=== PATIENT | male | born 1970 | race Caucasian/White ===

== ENCOUNTER 2018-12-16 12:11 | Emergency (ER) | payer OTHER ==
[2018-12-16 12:28] VITALS: BP 158/78; PULSE 84; RESP 17; TEMP 98; O2SAT 97
--- NOTE | 2018-12-16 12:49 | ED PDOC ---
HPI: General Adult Time Seen by Provider: 12/16/18 12:32 Chief Complaint (Nursing): ENT Problem Chief Complaint (Provider): Abnormal Skin Integrity History Per: Patient History/Exam Limitations: no limitations Onset/Duration Of Symptoms: Days (1x week) Current Symptoms Are (Timing): Still Present Severity: Moderate Additional Complaint(s): 47 year old male with no pertinent past medical history presents to the ED for an evaluation of a pruritic rash of both hands that has been ongoing for the past 1x week. Patient reports using hydrocortisone cream with no relief. Patient reports that she washes his hands a lot throughout the day. Patient further reports that he has been experiencing left ear pain for the past 3-4x days. Patient denies having hearing changes, fevers, headaches, cough, congestion, ringing of the ears, recent swimming, or a history of diabetes. PMD: None provided. Past Medical History Reviewed: Historical Data, Nursing Documentation, Vital Signs Vital Signs: Last Vital Signs Temp 98.0 F 12/16/18 12:27 Pulse 84 12/16/18 12:27 Resp 17 12/16/18 12:27 BP 158/78 H 12/16/18 12:27 Pulse Ox 97 12/16/18 12:27 GAVIN Report Viewed: Yes - Medical History PMH: Bronchitis Denies: Asthma, Diabetes, HTN - Surgical History Surgical History: Hernia Repair - Family History Family History: States: Hypertension - Social History Current smoker - smoking cessation education provided: No Alcohol: Occasional Drugs: Denies - Immunization History Hx Tetanus Toxoid Vaccination: No Hx Influenza Vaccination: Yes Hx Pneumococcal Vaccination: No - Home Medications Home Medications: Ambulatory Orders Medication Instructions Recorded Ketoconazole 2% Cr [Nizoral] 1 appl TP BID #1 tube 11/24/18 Tolnaftate [Antifungal Cream] 14.18 gm TP BID 11/24/18 Miconazole 2% [Miconazole 2% Cream] 1 appl EXT BID #1 tube 11/27/18 Mupirocin 2% Cream [Bactroban 1 applic TOP BID #1 tube 11/27/18 Cream] Amoxicillin 875 mg PO BID #20 tablet 12/16/18 Neomycin/Polymyxin/Hydrocortis 4 drop TID #1 bottle 12/16/18 [Cortisporin Otic Susp] Triamcinolone Acetonide [Kenalog 1 applic TP BID PRN #1 tube 12/16/18 0.5% cream] - Allergies Allergies/Adverse Reactions: Allergies Allergy/AdvReac Type Severity Reaction Status Date / Time No Known Allergies Allergy Verified 11/27/18 10:07 Review of Systems ROS Statement: Except As Marked, All Systems Reviewed And Found Negative Constitutional: Negative for: Fever ENT: Positive for: Ear Pain (left ear pain). Negative for: Nose Congestion, Other (ear ringing, hearing changes.) Respiratory: Negative for: Cough Skin: Positive for: Rash (pruritic rash to both hands) Neurological: Negative for: Headache Physical Exam - Reviewed Nursing Documentation Reviewed: Yes Vital Signs Reviewed: Yes - Physical Exam Appears: Positive for: Well, Non-toxic, No Acute Distress Head Exam: Positive for: ATRAUMATIC, NORMOCEPHALIC Skin: Positive for: Warm, Dry, Rash (bilateral thenar area of the palms: scattered vesicles intact without surrounding erythema or pustules.) Eye Exam: Positive for: Normal appearance ENT: Positive for: Pharynx Is (clear), TM Is/Are (right TM: non erythematous, non bulging.), Other (left ear canal: (+) cerumen. minimal erythema to presently viewed canal. (-) mastoid tenderness or swelling bilaterally.) Neurologic/Psych: Positive for: Alert, Oriented (3x) - ECG O2 Sat by Pulse Oximetry: 97 (RA) Pulse Ox Interpretation: Normal - Progress ED Course And Treament: Cerumen removed from left ear canal with curette. Post removal examination revealed left TM erythematous, bulging and intact. Left ear canal is erythematous without bleeding or swelling. Medical Decision Making Medical Decision Makin:32 Initial impression: 47 year old male with a rash and an ear infection Scribe Attestation: Documented Cheryl Nicole, acting as a scribe for Camden E Pormentilla PA- C. Provider Scribe Attestation: All medical record entries made by the Scribe were at my direction and personally dictated by me. I have reviewed the chart and agree that the record accurately reflects my personal performance of the history, physical exam, medical decision making, and the department course for this patient. I have also personally directed, reviewed, and agree with the discharge instructions and disposition. Disposition - Clinical Impression Clinical Impression: Otitis media, Otitis externa, Dyshidrotic hand dermatitis - Patient ED Disposition Is Patient to be Admitted: No - Disposition Referrals: [facility] [Outside] Disposition: Routine/Home Disposition Time: 12:42 Condition: GOOD Prescriptions: Amoxicillin 875 mg PO BID #20 tablet Neomycin/Polymyxin/Hydrocortis [Cortisporin Otic Susp] 4 drop TID #1 bottle Triamcinolone Acetonide [Kenalog 0.5% cream] 1 applic TP BID PRN #1 tube PRN Reason: rash on hands Instructions: Dermatitis, Ear Infections (Otitis Media) (DC), Outer Ear Infection (DC) Forms: [employer] (Swiss) Print Language: HEBREW
== END 2018-12-16 13:02 | disposition home or self-care (01) ==
LOC: H.ER 12:11
DX: L30.1 Dyshidrosis [pompholyx] (principal); H60.92 Unspecified otitis externa, left ear; H66.92 Otitis media, unspecified, left ear